=== PATIENT | female | born 1995 | race Caucasian/White ===

== ENCOUNTER 2018-04-21 11:17 | Emergency (ER) | payer OTHER ==
[~2018-04-21] VITALS: Ht 162.6 cm; Wt 61.2 kg
[~2018-04-21 11:17] MED LIST: ACYCLOVIR 800800 MG PO; BENADRYL25 MG PO; CIPRO500 MG PO; DIFLUCAN150 M1 PO; FLAGYL500 MG PO; IBUPROFEN 800800 M1 PO; KEFLEX500 MG PO; MEDROLDOSEPACK PO; NOHOMEMEDICATIONS; NORCO 5-325 TA1 EACH PO; PEPCID AC10 M1 PO; PEPCID20 MG PO; PYRIDIUM100 M1 PO
[2018-04-21 11:50] LABS: HEMOGLOBIN 13.5 gm/dL (12.0-15.0); MCH 29.8 pg (26.0-34.0); MCHC 33.7 g/dL (28.0-37.0); MCV 88.4 fL (80.0-100.0); MPV 8.4 fl. (7.2-11.1); NUCLEATED RBCS 0 /100WBC; PLATELET COUNT* 284 thou/uL (150-400); RBC 4.52 mil/uL (4.20-5.00); RDW-CV 13.2 % (10.5-14.5); WBC 14.3 thou/uL (4.0-11.0)
[2018-04-21 11:54] LABS: CALCIUM 8.9 mg/dL (8.5-10.1); CREATININE 0.9 mg/dL (0.6-1.3)
[2018-04-21 11:59] LABS: TOTAL BILIRUBIN 0.7 mg/dL (<0.1-1.0); TOTAL PROTEIN 8.4 g/dL (6.4-8.2)
[2018-04-21 12:25] LABS: ABSOLUTE LYMPHOCYTES 0.7 thou/uL (0.8-5.3); ABSOLUTE MONOCYTES 0.3 thou/uL (0.0-1.2); ABSOLUTE NEUTROPHILS 13.3 thou/uL (1.6-8.1); ANISOCYTOSIS 1+; PLATELET ESTIMATE ADEQUATE; POIKILOCYTOSIS 1+
[2018-04-21 13:05] LABS: URINE BLOOD TRACE (Negative); URINE CLARITY CLEAR; URINE COLOR DARK YELLOW; URINE GLUCOSE-RANDOM NEGATIVE (Negative); URINE KETONES 2+ (Negative); URINE LEUKOCYTES-REFLEX NEGATIVE (Negative); URINE NITRITE-REFLEX NEGATIVE (Negative); URINE PROTEIN 2+ (Negative); URINE SPECIFIC GRAVITY 1.025 (1.005-1.030); URINE UROBILINOGEN 0.2 E.U./dl (0.2-1.0)
[2018-04-21 13:08] LABS: ICTOTEST (BILI CONFIRMATORY) Negative (Negative); URINE BILIRUBIN 1+ (Negative)
[2018-04-21 13:38] LABS: BACTERIA-REFLEX 1-9 Few /HPF (None Seen); CASTS None Seen /LPF (None Seen); MUCUS >6 Heavy strn/LPF (None Seen); SQUAMOUS 0-3 Few /LPF (0-3); URINE RBC 0-2 Rare /HPF (0-2); URINE WBC-REFLEX 0-5 Rare /HPF (0-5)
[2018-04-21 13:39] LABS: AMORPHOUS PHOSPHATES Few /LPF (None Seen)
[2018-04-21] MEDS ORDERED: NORCO 5-325 TA1 EAC1 PO (15:03)
[2018-04-21 15:05] VITALS: BP 107/44
[2018-04-21] MEDS ORDERED: ZOFRAN4 MG PO (15:06)
[2018-04-21] MEDS ORDERED: BENTYL 20 MG TA20 M1 PO (15:06)
== END 2018-04-21 15:10 | disposition home or self-care (01) ==
LOC: M.ERS 11:17
PROVIDERS: Nurse Practitioner Family
DX: N83.201 Unspecified ovarian cyst, right side (principal); F41.9 Anxiety disorder, unspecified; F32.9 Major depressive disorder, single episode, unspecified; Z88.8 Allergy status to other drugs, medicaments and biological substances

== ENCOUNTER 2020-09-14 19:06 | Emergency (ER) | payer OTHER ==
[~2020-09-14] VITALS: Ht 162.6 cm; Wt 52.2 kg
[~2020-09-14 19:06] MED LIST changes: +BENTYL 20 MG TA20 M1 PO; +NORCO 5-325 TA1 EAC1 PO; +ZOFRAN4 MG PO
[2020-09-14 19:37] LABS: ABSOLUTE BASOPHILS 0.1 thou/uL (0.0-0.2); ABSOLUTE EOSINOPHILS 0.1 thou/uL (0.0-0.7); ABSOLUTE LYMPHOCYTES 3.2 thou/uL (0.8-5.3); ABSOLUTE MONOCYTES 0.5 thou/uL (0.0-1.2); BASOPHILS 0.7 %; EOSINOPHILS 1.1 %; HEMATOCRIT 36.6 % (37.0-47.0); HEMOGLOBIN 12.5 gm/dL (12.0-15.0); LYMPHOCYTES 40.9 %; MCH 29.7 pg (26.0-34.0); MCHC 34.3 g/dL (28.0-37.0); MCV 86.8 fL (80.0-100.0); MONOCYTES 6.5 %; MPV 7.8 fl. (7.2-11.1); NUCLEATED RBCS 0 /100WBC; PLATELET COUNT* 311 thou/uL (150-400); POLYS 50.8 %; RBC 4.22 mil/uL (4.20-5.00); RDW-CV 12.8 % (10.5-14.5); WBC 7.9 thou/uL (4.0-11.0)
[2020-09-14 19:46] LABS: CALCIUM 9.5 mg/dL (8.5-10.1); CREATININE 0.8 mg/dL (0.6-1.3); POTASSIUM 3.5 mmol/L (3.5-5.1)
[2020-09-14 19:51] LABS: ALBUMIN 4.1 g/dL (3.4-5.0); TOTAL BILIRUBIN 0.3 mg/dL (<0.1-1.0); TOTAL PROTEIN 7.3 g/dL (6.4-8.2)
[2020-09-14 20:12] LABS: URINE BILIRUBIN NEGATIVE (Negative); URINE BLOOD NEGATIVE (Negative); URINE CLARITY CLEAR; URINE COLOR STRAW; URINE GLUCOSE-RANDOM NEGATIVE (Negative); URINE KETONES NEGATIVE (Negative); URINE LEUKOCYTES-REFLEX NEGATIVE (Negative); URINE NITRITE-REFLEX NEGATIVE (Negative); URINE PROTEIN NEGATIVE (Negative); URINE SPECIFIC GRAVITY 1.015 (1.005-1.030); URINE UROBILINOGEN 0.2 E.U./dl (0.2-1.0)
[2020-09-14] MEDS ORDERED: VISTARIL 25 MG25 M1 PO (20:22)
[2020-09-14] MEDS ORDERED: LEXAPRO 10 MG T10 M1 PO (20:26)
[2020-09-14 20:32] VITALS: BP 122/68
--- NOTE | 2020-09-15 10:30 | EKG ---
[place] [address] ELECTROCARDIOGRAM REPORT Name: DENITA VIERA Room: [facility]#: [id number] Admission: 09/14/20 Attend Phys: Discharge: 09/14/20 Date of : 89 Date of Service: 09/14/201911 Report #: [id number] THIS REPORT FOR: //name// [facility] ED Test Date: 2020-09-14 Test Time: 19:12:20 Pat Name: DENITA VIERA Department: Room: Gender: [place]: [place] : 1995 Requested By: Luis Alberto Salazar Order Number: [id number] MD: Saul Kim Measurements Intervals [place] Rate: 95 P: 11 [place]: 116 QRS: 71 QRSD: 91 T: 41 QT: 364 QTc: 458 Interpretive Statements Sinus rhythm Borderline short [place] interval No previous ECG available for comparison Electronically Signed On 09-15-2020 10:29:58 [employer] by Saul [employer] [email or web address] <ELECTRONICALLY SIGNED> By: Cecile Kim MD, [facility] 09/15/201028 11 11 Cecile Kim MD, [facility] /EPI
== END 2020-09-14 20:32 | disposition home or self-care (01) ==
LOC: M.ERS 19:06
PROVIDERS: Physician Assistant
DX: F41.9 Anxiety disorder, unspecified (principal); F32.9 Major depressive disorder, single episode, unspecified; R09.1 Pleurisy; Z88.8 Allergy status to other drugs, medicaments and biological substances